=== PATIENT | male | born 1970 | race Caucasian/White ===

== ENCOUNTER 2016-04-26 13:45 | Emergency (ER) | payer OTHER ==
[~2016-04-26] VITALS: Ht 182.9 cm; Wt 75.5 kg
[~2016-04-26 13:45] MED LIST: LORA-441 PO; OMEPRAZOLE PO
[2016-04-26 14:01] VITALS: Ht 182.9 cm; Wt 75.5 kg
[2016-04-26] MEDS ORDERED: ONDANSETRON 4 MG INJ IV STA (18:03)
[2016-04-26] MEDS ORDERED: morphine 4 MG/ML VIAL IV STA (18:03)
[2016-04-26] MEDS ORDERED: SOD CHLORIDE 0.9% 1,000 ML IV STA (18:03)
[2016-04-26 18:49] LABS: ADD UMIC YES; URINE BILIRUBIN (Dip) NEGATIVE (NEGATIVE); URINE BLOOD (Dip) TRACE (NEGATIVE); URINE COLOR LT. YELLOW (YELLOW); URINE GLUCOSE (Dip) NEGATIVE (NEGATIVE); URINE KETONES (Dip) NEGATIVE (NEGATIVE); URINE LEUKOCYTE ESTERASE (Dip) NEGATIVE (NEGATIVE); URINE NITRITE (Dip) NEGATIVE (NEGATIVE); URINE TOTAL PROTEIN (Dip) 1+ (NEGATIVE); URINE UROBILINOGEN (Dip) 0.2 E.U./dL (0.1-1.0)
[2016-04-26 19:01] LABS: ADD SCAN DIFF NO
[2016-04-26 19:13] LABS: URINE RBCS 0-2 /HPF (0)
[2016-04-26 19:14] LABS: ALBUMIN 4.7 g/dl (3.3-4.9)
[2016-04-26 19:15] LABS: POTASSIUM 4.1 mmol/L (3.5-5.1)
[2016-04-26 19:17] LABS: ALBUMIN/GLOBULIN RATIO 1.14; BILIRUBIN,INDIRECT 0.4 mg/dl (0-1.1); BILIRUBIN,TOTAL 0.4 mg/dl (0.2-1.3); CALCIUM 9.6 mg/dl (8.4-10.2); CREATININE 1.15 mg/dl (0.61-1.24); TOTAL PROTEIN 8.8 g/dl (6.1-8.1)
--- NOTE | 2016-04-26 19:20 | RADRPT ---
PROCEDURE: US Abdomen (right upper quadrant). CLINICAL INDICATION: Pain. TECHNIQUE: Multiple real-time longitudinal and transverse images of the right upper quadrant of th e abdomen were acquired utilizing a curved array transducer. Images were reviewed on a high-resoluti on PACS workstation. COMPARISON: None FINDINGS: The liver is normal in size and echogencity without focal mass. Multiple gallstones fill the gallbl adder. There is no pericholecystic fluid or gallbladder wall thickening. No intra or extrahepatic biliary dilatation is seen. The common bile duct measures 3.5 mm in maximal dimension. The pancrea s is unremarkable. No free fluid is identified. The right kidney measures 9.8 cm in length. Right kidney is normal in size and echogenicity without hydronephrosis, mass or calculus. There is no perinephric fluid collection. IMPRESSION: 1. Cholelithiasis. 2. No biliary ductal dilation or signs of cholecystitis. RPTAT: [facility] .Wilfredo Tsai MD, Date Time Electronically viewed and signed by .Wilfredo Tsia MD, MD on 04/26/2016 19:20 .K/
[2016-04-26 19:21] LABS: BASOPHILS % 0.4 % (0.0-2.0); EOSINOPHILS # 0.2 10^3/ul (0.0-0.5); EOSINOPHILS % 2.8 % (0.0-7.0); HEMATOCRIT 47.7 % (42.0-52.0); HEMOGLOBIN 16.5 g/dl (14.0-18.0); LYMPHOCYTES # 2.3 10^3/ul (0.8-2.9); MEAN CORPUSCULAR HEMOGLOBIN 29.7 pg (29.0-33.0); MEAN CORPUSCULAR HGB CONC 34.6 g/dl (32.0-37.0); MEAN CORPUSCULAR VOLUME 85.9 fl (82.0-101.0); MEAN PLATELET VOLUME 8.8 fl (7.4-10.4); MONOCYTE # 0.4 10^3/ul (0.3-0.9); MONOCYTES % 5.7 % (0.0-11.0); NEUTROPHIL # 4.5 10^3/ul (1.6-7.5); PLATELET COUNT 274 10^3/UL (140-415); RED BLOOD COUNT 5.55 10^6/ul (4.70-6.10); RED CELL DISTRIBUTION WIDTH 11.9 % (11.5-14.5); WHITE BLOOD COUNT 7.6 10^3/ul (4.8-10.8)
[2016-04-26] MEDS ORDERED: HYDR-906 PO (19:26)
[2016-04-26] MEDS ORDERED: ONDA4TAB8 PO (19:27)
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
[2016-04-26 19:55] VITALS: BP 138/88; PULSE 89; RESP 16; TEMP 98.6
== END 2016-04-26 19:56 | disposition home or self-care (01) ==
LOC: FTE 13:45
DX: K80.20 Calculus of gallbladder without cholecystitis without obstruction (principal); R11.0 Nausea; Z87.891 Personal history of nicotine dependence
CPT/HCPCS: 36415; 76705; 80053; 81001; 83690; 85025; 96374; J2405; J7030; Z7502; 81003

== ENCOUNTER 2016-06-08 09:48 | Day surgery (SDC) | payer OTHER ==
[2016-06-05 17:21] VITALS: BMI 23.3
[~2016-06-08] VITALS: Ht 157.5 cm; Wt 60.3 kg
[2016-06-08] VITALS (14 sets, daily range): BP systolic 117–131; BP diastolic 60–82; PULSE 65–95; RESP 15–22; Ht 157.5 cm; Wt 60.3 kg
[~2016-06-08 09:48] MED LIST changes: +HYDR-906 PO; +ONDA4TAB8 PO
[2016-06-08] MEDS ORDERED: LORA1TAB PO (10:20)
[2016-06-08] MEDS ORDERED: PANT40TA3 PO (10:20)
[2016-06-08 10:39] LABS: ADD SCAN DIFF NO
[2016-06-08 10:47] LABS: BASOPHILS % 0.8 % (0.0-2.0); EOSINOPHILS # 0.3 10^3/ul (0.0-0.5); EOSINOPHILS % 5.3 % (0.0-7.0); HEMATOCRIT 45.2 % (42.0-52.0); HEMOGLOBIN 15.3 g/dl (14.0-18.0); LYMPHOCYTES # 1.7 10^3/ul (0.8-2.9); MEAN CORPUSCULAR HEMOGLOBIN 29.5 pg (29.0-33.0); MEAN CORPUSCULAR HGB CONC 33.8 g/dl (32.0-37.0); MEAN CORPUSCULAR VOLUME 87.3 fl (82.0-101.0); MEAN PLATELET VOLUME 8.8 fl (7.4-10.4); MONOCYTE # 0.4 10^3/ul (0.3-0.9); NEUTROPHIL # 2.5 10^3/ul (1.6-7.5); NEUTROPHILS % 51.7 % (39.0-77.0); PLATELET COUNT 237 10^3/UL (140-415); RED BLOOD COUNT 5.18 10^6/ul (4.70-6.10); RED CELL DISTRIBUTION WIDTH 12.2 % (11.5-14.5); WHITE BLOOD COUNT 4.9 10^3/ul (4.8-10.8)
[2016-06-08 10:53] LABS: INR 0.97; PARTIAL THROMBOPLASTIN TIME 29.6 Sec (25.0-35.0); PROTIME 12.9 Sec (12.2-14.2)
[2016-06-08] MEDS ORDERED: SOD CHLORIDE 0.9% 1,000 ML IV ONE (11:00)
[2016-06-08] MEDS ORDERED: CEFAZOLIN 1 GM/50 ML (PMX) 50 ML IVPB ONE (11:00)
[2016-06-08 11:20] LABS: CALCIUM 9.5 mg/dl (8.4-10.2); CREATININE 1.27 mg/dl (0.61-1.24)
[2016-06-08] MEDS ORDERED: BUPIVACAINE 0.25% (MPF) 10 ML 10 ML VIAL ONE (13:19)
[2016-06-08] MEDS ORDERED: MIDAZOLAM 1 MG/ML 2 ML INJ ONE (13:29)
[2016-06-08] MEDS ORDERED: HYDROmorphONE (0.2 MG/ML) 10ML SYG IV PRN (14:00)
[2016-06-08] MEDS ORDERED: DIPHENHYDRAMINE 50 MG INJ IV PRN (14:00)
[2016-06-08] MEDS ORDERED: ONDANSETRON 4 MG INJ IV PRN (14:00)
[2016-06-08] MEDS ORDERED: METOCLOPRAMIDE 10 MG INJ IV PRN (14:00)
[2016-06-08] MEDS ORDERED: FENTAnyl 50 MCG/ML VIAL IV PRN (14:00)
[2016-06-08] MEDS ORDERED: MEPERIDINE 25 MG INJ IV PRN (14:00)
[2016-06-08] MEDS ORDERED: ONDANSETRON 4 MG INJ ONE (14:24)
[2016-06-08] MEDS ORDERED: LIDOCAINE 2% (SDV) 5 ML INJ ONE (14:25)
[2016-06-08] MEDS ORDERED: GLYCOPYRROLATE 0.4 MG INJ ONE (14:25)
[2016-06-08] MEDS ORDERED: NEOSTIGMINE 3 MG/3 ML SYRINGE ONE (14:25)
[2016-06-08] MEDS ORDERED: CEFAZOLIN 1 GM INJ ONE (14:25)
[2016-06-08] MEDS ORDERED: PROPOFOL 20 ML ONE (14:25)
[2016-06-08] MEDS ORDERED: ROCURONIUM 50 MG INJ ONE (14:25)
[2016-06-08] MEDS ORDERED: HYDROCODONE/APAP (5/325) TAB PO ONE (14:30)
[2016-06-08] MEDS: HYDROmorphONE (0.2 MG/ML) 10ML SYG IV PRN ×4 (14:45→15:06)
--- NOTE | 2016-06-08 15:56 | OPR ---
DATE OF OPERATION: 06/08/2016 INDICATION: This is a 45-year-old male with symptomatic gallstones. He requests surgical excision. Risks, alternatives, benefits, and personnel were discussed with the patient. Patient expressed u nderstanding and consents to the operation. PREOPERATIVE DIAGNOSIS: Symptomatic gallstones. POSTOPERATIVE DIAGNOSIS: Symptomatic gallstones. OPERATION PERFORMED: 1. Laparoscopic cholecystectomy. 2. Laparoscopic lysis of adhesions. SURGEON: Home Lopez MD SPECIMENS: Gallbladder. COMPLICATIONS: None. ANESTHESIA: General. PROCEDURE: The patient was taken to the OR and prepped and draped in the usual sterile fashion. [place]oyos rgical timeout was performed. IV antibiotics were given. Right upper quadrant transverse incision was made subcostally with a 15 blade. Using a 5 mm optical trocar, optical entry was performed. Up on entry there appears to be significant amount of adhesions. Additional ports were placed in the r ight upper flank 5 mm optical trocar under direct visualization. Using this trocar laparoscopic ting is of adhesions was performed to gain access to the mid epigastric and periumbilical region. Some s pace was mobilized and freed up in the periumbilical area. A transverse incision with a 15 blade wa s made in the right upper periumbilical area. Using a 12 mm optical trocar, optical entry was perfo rmed here. Midepigastric 12 mm optical trocar was entered under direct visualization. Upon initial inspection, there were some adhesions to the gallbladder which were taken down bluntly. The cystic duct was identified. The critical view was established. The cystic duct was divided using a 35 mm Eddystone vascular load stapler. The cystic artery was divided using clips and scissors. Additional clips were placed along the staple line for reinforcement. The gallbladder was taken off the gallb ladder bed. There was good hemostasis. Gallbladder was retrieved using EndoCatch bag, through the periumbilical port site. This port site was closed with interrupted #1 Prolene in interrupted and f [id number] fashion. There was good hemostasis. Ports were removed under direct visualization. Skin was closed using skin pop. Local anesthesia was injected and dry dressings were applied. Dictated By: HOME LANIER/BHAVESH Conf#: [id number] DID#: [id number]
== END 2016-06-08 16:45 | disposition home or self-care (01) ==
LOC: SDS 09:48
PROVIDERS: ATTEND Surgery
DX: K80.10 Calculus of gallbladder with chronic cholecystitis without obstruction (principal)
CPT/HCPCS: 47562; 80048; 85025; 85610; 85730; 88304; J0690; J1170; J2250; J2405; J2710; J3010; Z7512; Z7610